=== PATIENT | male | born 1970 | race Two or more races ===

== ENCOUNTER 2019-09-01 07:51 | Day surgery (SDC) | payer BC ==
[~2019-09-01 07:51] MED LIST: Lactated Ringers 1,000 ML IV SCH; Lidocaine 1% 4 ML ONE; Lidocaine 1%/Sod Bicarbonate in NS 8.4% 1 ML Syringe IDERM PRN; Propofol 200 MG/20 ML SDV ONE; Sodium Chloride 0.9% 10 ML Syringe FLUSH PRN; fentaNYL 100 MCG/2 ML SDV ONE
--- NOTE | 2019-09-01 08:02 | PCM.PREANE ---
Preanesthetic Assessment - Anesthesia/Transfusion/Family Hx Anesthesia History: Prior Anesthesia Without Reaction Transfusion History: No Prior Transfusion(s) Intubation History: Unknown - Review of Systems General: No Symptoms Pulmonary: No Symptoms Cardiovascular: No Symptoms Gastrointestinal: No Symptoms Neurological: No Symptoms Other: Reports: None - Physical Assessment NPO Status Date: 08/31/19 NPO Status Time: 04:30 (CLQ) Vital Signs: 132/81, 96%, 60 HR 97.7F ASA Class: 2 Mental Status: Alert & Oriented x3 Dentition: Reports: Dentures (both upper and lower partials), Partial Thyro-Mental Finger Breadths: 3 Mouth Opening Finger Breadths: 3 ROM/Head Extension: Full Lungs: Clear to Auscultation, Normal Respiratory Effort Cardiovascular: Regular Rate, Regular Rhythm - Allergies Allergies/Adverse Reactions: Allergies Allergy/AdvReac Type Severity Reaction Status Date / Time No Known Allergies Allergy Verified 08/31/19 15:37 - Acknowledgements Anesthesia Type Planned: MAC Pt an Appropriate Candidate for the Planned Anesthesia: Yes Alternatives and Risks of Anesthesia Discussed w Pt/Guardian: Yes Pt/Guardian Understands and Agrees with Anesthesia Plan: Yes PreAnesthesia Questionnaire HEENT History: Reports: Other (See Below) Other HEENT History: dentures Cardiovascular History: Reports: Hypertension Other Gastrointestinal History: bloating, gastritis Genitourinary History: Reports: Other (See Below) Other Genitourinary History: testicular surgery Musculoskeletal History: Reports: Arthritis, Gout Other Musculoskeletal History: right shoulder pain - Past Surgical History Head Surgeries/Procedures: Reports: None Cardiovascular Surgical History: Reports: None Respiratory Surgical History: Reports: None GI Surgical History: Reports: None Female Surgical History: Reports: None Male Surgical History: Reports: None Endocrine Surgical History: Reports: None Neurological Surgical History: Reports: None Musculoskeletal Surgical History: Reports: None Oncologic Surgical History: Reports: None Dermatological Surgical History: Reports: None - SUBSTANCE USE Smoking Status *Q: Never Smoker Recreational Drug Use History: No - HOME MEDS Home Medications: Home Meds Ascorbic Acid [Vitamin C] 1,000 mg PO DAILY 08/31/19 [History] Cider Vinegar [Apple Cider Vinegar] 500 mg PO DAILY 08/31/19 [History] Fish Oil/Sterrett-3 Fatty Acids [Fish Oil 1,000 MG] 1 gm PO DAILY 08/31/19 [History ] Multivitamin [Daily Multiple Vitamin] 1 tab PO DAILY 08/31/19 [History] Vitamin E 400 unit PO DAILY 08/31/19 [History] allopurinoL [Zyloprim] 100 mg PO DAILY 08/31/19 [History] - CURRENT (IN HOUSE) MEDS Current Meds: Current Medications Lactated Ringer's (Ringers, Lactated) 1,000 mls @ 125 mls/hr IV ASDIRECTED YURI Stop: 09/01/19 23:00 Lidocaine/Sodium Bicarbonate (Buffered Lidocaine 1% In Ns 8.4%) 0.25 ml IDERM ONETIME PRN PRN Reason: Prior to IV Start Stop: 09/01/19 18:00 Sodium Chloride (Saline Flush) 10 ml FLUSH ASDIRECTED PRN PRN Reason: Keep Vein Open Stop: 09/01/19 18:00 Discontinued Medications Fentanyl (Sublimaze) Confirm Administered Dose 100 mcg .ROUTE .STK-MED ONE Stop: 09/01/19 07:12 Lidocaine HCl (Xylocaine-Mpf 1%) Confirm Administered Dose 4 mls @ as directed .ROUTE .STK-MED ONE Stop: 09/01/19 07:10 Propofol (Diprivan 20 Ml) Confirm Administered Dose 600 mg .ROUTE .STK-MED ONE Stop: 09/01/19 07:07
--- NOTE | 2019-09-01 09:03 | PCM.PRNOTE ---
- Free Text/Narrative Note: Date: 09/01/2019 Procedure(s): diagnostic esophagogastroduodenoscopy, colonoscopy Endoscopist: Christopher Jiang MD Findings: no gross abnormalities noted. Bowel prep was very good, ileocecal valve visualized. Detailed Report: The patient was taken to the endoscopy suite and placed in left lateral decubitus position. Timeout was performed, monitored anesthesia care initiated. A bite-block was placed, and the lubricated endoscope was inserted into the mouth and advanced all the way to the second portion of the duodenum. The duodenal mucosal appeared grossly normal, a sample biopsy was obtained with forceps. The gastric antrum and body appeared grossly normal as well, a sample of the antrum was obtained for pathologic analysis as well. On retroflexion, no hiatal hernia was noted. The scope was withdrawn into the distal esophagus, the Z line appeared normal, there is no evidence of gross metaplasia or esophagitis. A sample biopsy was obtained at this site as well. The scope was then withdrawn. Attention was then turned to colonoscopy. Visual inspection of the anus was normal, and digital rectal exam was unremarkable. The lubricated colonoscope was then inserted and advanced all the way to the ileocecal valve. At one point, presumably near the splenic flexure, the colon was significantly tortuous and difficult to navigate with the scope, although no obvious stricture or other lesion was appreciated. Once the ileocecal valve was visualized, the scope was slowly withdrawn and mucosal surfaces carefully inspected. The bowel prep was noted to be very good. No polyps were identified , no diverticular disease was appreciated. No hemorrhoidal disease was noted on retroflexion of the scope within the rectum. The patient tolerated the procedure well. Christopher Jiang MD General Surgery
== END 2019-09-01 10:10 | disposition home or self-care (01) ==
LOC: JD.SDS 07:51
PROVIDERS: ATTEND Surgery
DX: K20.9 Esophagitis, unspecified (principal); K29.80 Duodenitis without bleeding; Q43.8 Other specified congenital malformations of intestine; I10 Essential (primary) hypertension; M19.90 Unspecified osteoarthritis, unspecified site; M10.9 Gout, unspecified; Z80.0 Family history of malignant neoplasm of digestive organs; Z79.899 Other long term (current) drug therapy
CPT/HCPCS: 43239; 45378; J2001; J2704; J3010; J7120